=== PATIENT | female | born 1955 | race Caucasian/White ===

== ENCOUNTER 2023-11-18 08:37 | Outpatient (CLI) | payer MEDICARE, SELFPAY ==
--- NOTE | ~2023-11-18 | XR_ITS ---
EXAMINATION: XR foot LT min 3V DATE: 11/18/2023 09:07 INDICATION: Left great toe pain with bunion. TECHNIQUE: 4 views of left foot including weight-bearing views were obtained. COMPARISON: None. FINDINGS: Pes planus is noted. There is moderate hallux valgus. No fracture. There are changes of res ection of head of fifth proximal phalanx. There is mild osteoarthritis of first metatarsophalangeal j oint and some of the interphalangeal joints and midfoot joints. There is severe osteoarthritis of sec ond tarsometatarsal joint. There is an enthesophyte at plantar aspect of calcaneal tuberosity. IMPRESSION: 1. Moderate hallux valgus. 2. Pes planus. 3. Polyarticular osteoarthritis. Reviewed, dictated and finalized at location A.
== END 2023-11-18 08:38 | disposition home or self-care (01) ==
LOC: CHSIMG 08:45
PROVIDERS: Visit Provider Orthopaedic Surgery
DX: M79.672 Pain in left foot (principal); M20.12 Hallux valgus (acquired), left foot; M21.42 Flat foot [pes planus] (acquired), left foot; M19.072 Primary osteoarthritis, left ankle and foot
CPT/HCPCS: 73630